=== PATIENT | female | born 1955 | race Caucasian/White ===

== ENCOUNTER → 2017-05-05 | Outpatient (CLI) | payer MEDICARE, MEDICAID ==
[~2017-05-05] MED LIST: ACCUPRIL10 MG PO; ALBUTEROL0.09 MG/A2 INH; AMOXICILLIN500 M3 PO; AMOXICILLIN500 MG PO; CELEBREX200 MG PO; CITRACAL + BON1 EACH PO; CRESTOR20 MG PO; CRESTOR40 M1 PO; FLONASE ALLERG9.9 ML NS; LOMOTIL 0.025 M1 TAB PO; MACROBID100 M1 PO; NEURONTIN400 MG PO; OMEPRAZOLE MAGN20 MG PO; TYLENOL500 MG PO; ZANTAC150 MG PO; ZOFRAN ODT8 MG PO; [UNRECOGNIZED DRUG - OTHER] PO
== END | disposition home or self-care (01) ==
LOC: D 00:46
DX: E11.42 Type 2 diabetes mellitus with diabetic polyneuropathy (principal); M79.1 Myalgia; R25.2 Cramp and spasm; R29.898 Other symptoms and signs involving the musculoskeletal system

== ENCOUNTER 2017-05-20 16:18 | Inpatient (IN) | payer MEDICARE, MEDICAID ==
[~2017-05-20] VITALS: Ht 157.4 cm; Wt 59.0 kg
--- NOTE | ~2017-05-20 | CON ---
[place], [place] REPORT OF CONSULTATION NAME: GELACIO METZ UNIT #: [id number] ROOM: 402 DOCTOR: SARAH VARGASKESHAV BIRTHDATE: [birth year] DOS: 05/21/2017 HISTORY OF PRESENT ILLNESS: Patient has presented with atypical chest pain, dyspepsia, eructation, nausea, has been admitted for definitive evaluation. White blood cell 7, H and H of 12 and 38. INR was 1.1. Comprehensive metabolic panel, electrolyte balanced. Liver function tests normal. No acute pathology identified. PAST MEDICAL HISTORY: Diverticulosis, diabetes mellitus, jaw dislocation, Raynaud disease, interstitial cystitis, hiatal hernia. PAST SURGICAL HISTORY: Colonoscopy, EGD, D and C, cystoscopy. SOCIAL HISTORY: Nonsmoker, nonalcohol consumer. FAMILY HISTORY: Noncontributory. MEDICATIONS: List has been reviewed. ALLERGIES: To numerous medications as listed in chart, history and physical. REVIEW OF SYSTEMS: HEENT: Denies double vision, blurred vision. RESPIRATORY: Denies acute shortness of breath. CARDIOVASCULAR: Denies acute chest pain. DIGESTIVE SYSTEM: Eructation, nausea, epigastric distress, dyspepsia. PHYSICAL EXAMINATION: VITAL SIGNS: Stable. GENERAL: Extremely anxious patient. HEENT: Head normocephalic, nontraumatic. Mouth and buccal mucosa benign. NECK: Supple. No thyromegaly. No cervical lymphadenopathy. CHEST: Symmetric anatomy, equal expansion, no wheeze, no rhonchi. HEART: Normal sinus rhythm, no gallop, no murmur. ABDOMEN: Soft. No hepato-organomegaly. Bowel sounds present. No pulsatile mass. EXTREMITIES: No cyanosis, no pedal edema. NEUROLOGIC: Alert, oriented to time, place, person. IMPRESSION: Epigastric distress, dyspepsia, reflux. Patient with a history of omeprazole intake 20 mg daily, on the other hand on Celebrex 200 mg b.i.d., on the other hand on vitamin C and multiple other medications including Crestor and zinc, combination of all could induce further gastritis in her or peptic ulcer disease. PLAN: We are going to organize an EGD today. [place], [place] REPORT OF CONSULTATION NAME: GELACIO METZ UNIT #: [id number] ROOM: 402 DOCTOR: KESHAV SMITH MD BIRTHDATE: [birth year] KESHAV SMITH MD CM:CONSTR:REPORT OF CONSULTATION 1411 05/22/17 0559 interface
--- NOTE | ~2017-05-20 | O ---
[place], [place] OPERATIVE NOTE [id number] UN[facility] #: [id number] ROOM: 402 DOCTOR: SARAH VARGAS,KESHAV BIRTHDATE: [birth year] DOS: GASTRO-ENDOSCOPIC REPORT INDICATIONS: The patient has presented with chief complaint of epigastric distress, dyspepsia. The patient has been undergoing cardiac workup. She is allergic to numerous medications. On the other hand, the patient has been on ascorbic acid, Celebrex and zinc product and on the other hand, she has been on gabapentin and omeprazole and so some of her pain has been masked. PROCEDURE: Today's procedure part of investigation is panendoscopy plus biopsy. PREMEDICATION: Versed and Diprivan. SCOPE: Olympus forward-viewing gastroscope Q10 video. REPORT: After putting the patient in the left lateral position and after application of lubricant to the scope, the scope was introduced. Thereafter, under direct visualization, I advanced through the length of the esophagus without difficulty. A small hiatal hernia about 1.5 cm was identified. Gastric pouch was entered. Gastritis seen. Duodenal bulb, second and third part within normal limits. The patient extubated, tolerated procedure well. IMPRESSION: Gastritis, particularly in the antral anatomy, status post biopsy and photographic series, small hiatal hernia. PLAN AND DISCUSSION: The patient would be benefiting from increasing her omeprazole to 20 mg b.i.d. and avoiding Celebrex if possible, particularly 200 mg b.i.d. and avoiding zinc product, avoiding vitamin C products which she is taking 3000 mg daily. so, the offensive agents are listed and I would recommend that she take Gaviscon Extra Strength with any one of these pills that she has to take at least daily to ameliorate adverse effect of above. KESHAV SMITH MD CM:OPRECORD:OPERATIVE NOTE [id number] KESHAV SMITH MD 05/21/17 1535 interface
[2017-05-20 16:25] VITALS: BP 180/86
--- NOTE | 2017-05-20 16:28 | NUR ---
PATIENT HAS BEEN DEFERRED TO EXAM ROOM AT THIS TIME. DR SNYDER NOTIFED.
--- NOTE | 2017-05-20 16:28 | NUR ---
PATIENT STATES IN TRIAGE THAT SHE TOLD REGISTRATION THAT SHE WAS HERE FOR URINARY SYMPTOMS. STATES TO NURSE LATER THAT SHE HAS BEEN HAVING VAGUE CHEST PAIN AND OTHER SYMPTOMS. SEE TRIAGE ASSESSMENT FOR THIS. EKG WAS CALLED IMMEADIATELY.
[2017-05-20 16:50] LABS: BASO % 0.4 % (0.0-1.0); EOS # 0.2 10*3/uL (0.0-0.4); EOS % 2.3 % (1.0-4.0); HEMATOCRIT 38.1 % (37.0-47.0); HEMOGLOBIN 12.5 g/dl (12.0-16.0); LYMPH # 1.6 10*3/uL (1.3-4.4); LYMPH % 22.5 % (27.0-41.0); MEAN CELL VOLUME 88.2 fl (81.0-99.0); MEAN CORPUSCULAR HGB 28.9 pg (27.0-31.0); MEAN CORPUSCULAR HGB CONC 32.8 g/dl (33.0-37.0); MEAN PLATELET VOLUME 10.8 fl (9.6-12.3); MONO # 0.6 10*3/uL (0.1-1.0); MONO % 7.9 % (3.0-9.0); NEUT # 4.7 10*3/uL (2.3-7.9); NEUT % 66.8 % (47.0-73.0); PLATELET COUNT AUTOMATED 279 10*3/uL (130-400); RED BLOOD COUNT 4.32 10*6/uL (4.10-5.10); RED CELL DISTRI WIDTH 12.3 % (0-14.5); WHITE BLOOD COUNT 7.1 10*3/uL (4.8-10.8)
[2017-05-20 17:00] LABS: ACT PARTIAL THROMBO TIME 24.8 SECONDS (20.8-31.5)
[2017-05-20 17:08] LABS: ALBUMIN 3.9 gm/dl (3.1-4.5); ALKALINE PHOSPHATASE 73 U/L (45-117); BUN 16 mg/dl (7-24); CHLORIDE 97 mmol/L (98-107); CREATININE 0.72 mg/dL (0.55-1.02); POTASSIUM 3.7 mmol/L (3.5-5.1); SGOT/AST 30 IU/L (3-35); SGPT/ALT 30 U/L (12-78); SODIUM 135 mmol/L (136-145); TOTAL PROTEIN 7.9 gm/dL (6.4-8.2)
[2017-05-20 17:09] LABS: TROPONIN I < 0.015 ng/ml (<0.045)
[2017-05-20 17:22] LABS: BILIRUBIN NEGATIVE (NEGATIVE); BLOOD NEGATIVE (NEGATIVE); CLARITY CLEAR (CLEAR); COLOR YELLOW (YELLOW); GLUCOSE NEGATIVE (NEGATIVE); KETONE NEGATIVE (NEGATIVE); LEUKO ESTERASE 2+ (NEGATIVE); NITRITE NEGATIVE (NEGATIVE); SPECIFIC GRAVITY <= 1.005 (1.005-1.030); UROBILINOGEN 0.2 E.U./dl (0.2-1.0)
[2017-05-20 17:24] VITALS: BP 179/88
[2017-05-20 17:27] LABS: BACTERIA 1+; RBC 0-2 rbc/hpf (0-2)
[2017-05-20 17:56] VITALS: BP 160/62
--- NOTE | 2017-05-20 19:11 | NUR ---
PATIENT REQUESTS FRUIT TO BALANCE HER DINNER MEAL. DIETARY CALLED AND INFORMED.
--- NOTE | 2017-05-20 19:56 | NUR ---
A 62, admitted to 4E, under the services of JOAQUÍN Cali DO with a diagnosis of CHEST PAIN. Chief complaint is WEAKNESS, CHEST PAIN. Patient arrived via ambulatory from ER. Monitor applied. Initial assessment completed. Vital signs taken and recorded. JOAQUÍN CALI DO notified of admission to the unit. Orders received. See assessment for past medical history, medications and allergies. Patient and/or family oriented to unit. [facility] visitation policy reviewed. Clothing/patient valuable form completed. KIA ALEMAN
[2017-05-20 19:57] VITALS: BP 134/76
[2017-05-20 20:00] VITALS: BP 160/62
[2017-05-20] MEDS ORDERED: PROVENTIL HFA6.7 GM INH (20:07)
[2017-05-20] MEDS ORDERED: ACCUPRIL20 MG PO (20:08)
[2017-05-20] MEDS ORDERED: AMILORIDE HCL-1 EACH PO (20:10)
[2017-05-20] MEDS ORDERED: TYLENOL EXTRA500 MG PO (20:14)
[2017-05-20] MEDS ORDERED: VITAMIN C WIT1000 M1 PO (20:16)
[2017-05-20] MEDS ORDERED: ZINC50 M4 PO (20:16)
--- NOTE | 2017-05-20 22:26 | NUR ---
NOTIFIED DR. SMITH OF CONSULT, PATIENT FOR EGD TOMORROW 05/21/17
--- NOTE | 2017-05-20 22:30 | NUR ---
DR. ELLIOTT NOTIFIED OF CONSULT THROUGH ANSWERING SERVICE.
[2017-05-21] VITALS (7 sets, daily range): BP systolic 121–164; BP diastolic 63–82
[2017-05-21 05:48] LABS: BUN 17 mg/dl (7-24); CHLORIDE 96 mmol/L (98-107); CHOLESTEROL 207 mg/dL (<200); CREATININE 0.78 mg/dL (0.55-1.02); HDL CHOLESTEROL 53 mg/dl (40-60); LDL CHOLESTEROL 108 mg/dL (9-159); PHOSPHOROUS 3.9 mg/dL (2.5-4.9); POTASSIUM 4.1 mmol/L (3.5-5.1); SODIUM 135 mmol/L (136-145); TRIGLYCERIDES 228 mg/dl (<150); VLDL CHOLESTEROL 46 mg/dL (6-40)
[2017-05-21 06:19] LABS: BASO % 0.6 % (0.0-1.0); EOS # 0.1 10*3/uL (0.0-0.4); EOS % 2.2 % (1.0-4.0); HEMATOCRIT 39.6 % (37.0-47.0); HEMOGLOBIN 12.7 g/dl (12.0-16.0); LYMPH % 31.2 % (27.0-41.0); MEAN CELL VOLUME 89.4 fl (81.0-99.0); MEAN CORPUSCULAR HGB 28.7 pg (27.0-31.0); MEAN CORPUSCULAR HGB CONC 32.1 g/dl (33.0-37.0); MEAN PLATELET VOLUME 10.8 fl (9.6-12.3); MONO # 0.7 10*3/uL (0.1-1.0); MONO % 10.4 % (3.0-9.0); NEUT # 3.5 10*3/uL (2.3-7.9); NEUT % 55.3 % (47.0-73.0); PLATELET COUNT AUTOMATED 284 10*3/uL (130-400); RED BLOOD COUNT 4.43 10*6/uL (4.10-5.10); RED CELL DISTRI WIDTH 12.3 % (0-14.5); WHITE BLOOD COUNT 6.4 10*3/uL (4.8-10.8)
[2017-05-21 06:33] LABS: VITAMIN D, 25-HYDROXY 43.7 ng/mL (30-100)
--- NOTE | 2017-05-21 07:56 | NUR ---
[employer] Boards [employer] in to talk to patient. Patient states lives at HOME ALONE with . There are 2 steps in the home. Physician: DR DICK Pharmacy: [facility] health services: NONE Patient's level of ADLs: INDEPENDENT Patient has working utilities: YES DME: [facility] Follow-up physician's appointment after d/c: WILL BE MADE PRIOR TO DC Does patient want to access PORTAL?: Discharge plan HOME. LAUREANO TORRES
--- NOTE | 2017-05-21 08:18 | NUR ---
PT AGITATED THAT SHE IS NOT ALLOWED TO EAT TODAY DUE TO HER EGD AND STRESS TEST. I EXPLAINED THAT IMPORTANCE OF WHY SHE NEEDS TO BE NPO FOR THESE TESTS BUT PT STATES THAT SHE IS A DIET CONTROLLED DIABETIC AND SHE DOESNT FEEL GOOD IF SHE DOESNT EAT. I CHECKED PT'S BEDSIDE GLUCOSE AND IT IS 112 AT THIS TIME.
--- NOTE | 2017-05-21 10:15 | NUR ---
PT TAKEN TO CARDIAC REHAB FOR STRESS TEST.
--- NOTE | 2017-05-21 11:26 | NUR ---
INFORMED CONSENT SIGNED FOR LEXISCAN STRESS TEST WITH DR. ELLIOTT. RESTING EKG NSR, HR 78, BP 120/79. PULSE OX 95% AND LUNGS CLEAR. COMPLETED ONE MINUTE OF LEXISCAN PROTOCOL RECEIVING LEXISCAN 0.4MG OVER 10 SEC[address]DS[address] NO ARRHYTHMIAS OR ST CHANGES NOTED. PT C/O SOB AND HEADACHE. LAST RECOVERY HR 103, BP 120/70. WAITNG NUCLEAR SCANNING IN STABLE CONDITION.
--- NOTE | 2017-05-21 12:57 | NUR ---
PT TAKEN TO SURGERY DEPT FOR EGD.
[2017-05-21] MEDS ORDERED: B12,B-12,B 12500 MC1 PO (15:33)
[2017-05-21] MEDS ORDERED: PHENAZOPYRIDIN100 M1 PO (16:24)
--- NOTE | 2017-05-21 17:08 | NUR ---
DISCHARGE PAPERWORK REVIEWED WITH PATIENT. ALL QUESTIONS ANSWERED AT THIS TIME. PATIENT VERBALIZED UNDERSTANDING. OFF THE FLOOR WITH ALL BELONGINGS IN HAND VIA WHEELCHAIR.
== END 2017-05-21 17:08 | disposition home or self-care (01) | DRG 872 ==
LOC: ED 16:18 → 4E 18:27 → EDHOLD 18:27 → 4E 18:41
PROVIDERS: Internal Medicine; Student in an Organized Health Care Education/Training Program; ADMIT Internal Medicine
PROC: 4A02XM4 Measurement of Cardiac Total Activity, External Approach (ICD-10-PCS; principal; 2017-05-21)
PROC: 0DB68ZX Excision of Stomach, Via Natural or Artificial Opening Endoscopic, Diagnostic (ICD-10-PCS; principal; 2017-05-21)
PROC: 3E073KZ Introduction of Other Diagnostic Substance into Coronary Artery, Percutaneous Approach (ICD-10-PCS; principal; 2017-05-21)
DX: A41.9 Sepsis, unspecified organism (principal); E11.42 Type 2 diabetes mellitus with diabetic polyneuropathy; E87.8 Other disorders of electrolyte and fluid balance, not elsewhere classified; R13.10 Dysphagia, unspecified; E11.65 Type 2 diabetes mellitus with hyperglycemia; E83.41 Hypermagnesemia; E87.1 Hypo-osmolality and hyponatremia; I16.1 Hypertensive emergency; N39.0 Urinary tract infection, site not specified; F41.9 Anxiety disorder, unspecified; R07.89 Other chest pain; I10 Essential (primary) hypertension; M19.90 Unspecified osteoarthritis, unspecified site; M79.7 Fibromyalgia; K44.9 Diaphragmatic hernia without obstruction or gangrene; K57.90 Diverticulosis of intestine, part unspecified, without perforation or abscess without bleeding; I73.00 Raynaud's syndrome without gangrene; E78.2 Mixed hyperlipidemia; K29.70 Gastritis, unspecified, without bleeding; Z88.1 Allergy status to other antibiotic agents; Z88.5 Allergy status to narcotic agent; Z88.0 Allergy status to penicillin; Z88.2 Allergy status to sulfonamides; Z88.8 Allergy status to other drugs, medicaments and biological substances; Z83.3 Family history of diabetes mellitus; Z82.49 Family history of ischemic heart disease and other diseases of the circulatory system; Z82.3 Family history of stroke; Z82.61 Family history of arthritis; Z79.899 Other long term (current) drug therapy

== ENCOUNTER → 2018-01-12 | Day surgery (SDC) | payer MEDICARE, MEDICAID ==
[~2018-01-12] MED LIST changes: +ACCUPRIL20 MG PO; +AMILORIDE HCL-1 EACH PO; +ANASPAZ0.125 M1 PO; +B12,B-12,B 12500 MC1 PO; -CELEBREX200 MG PO; +CELECOXIB200 M1 PO; +PHENAZOPYRIDIN100 M1 PO; +PROVENTIL HFA6.7 GM INH; +TYLENOL EXTRA500 MG PO; +VITAMIN C WIT1000 M1 PO; +ZINC50 M4 PO; +[UNRECOGNIZED DRUG - OTHER] T
--- NOTE | ~2018-01-12 | O ---
[place], [place] OPERATIVE NOTE NAME: GELACIO METZ UNIT #: [id number] ROOM: DOCTOR: KESHAV SMITH MD BIRTHDATE: [birth year] DOS: 01/12/2018 HISTORY OF PRESENT ILLNESS: A 62-year-old patient who presented with a complaint of rectal pain, periodic blood in the stool, change in bowel habit, constipation and diarrhea. PAST MEDICAL HISTORY: Hypercholesterolemia, hypertension, rectal fissure history status post treatment. PAST SURGICAL HISTORY: Uterine polyp laparoscopy removal. SOCIAL HISTORY: Nonsmoker and nonalcohol consumer. PROCEDURE: Today's procedure part of investigation is colonoscopy plus polypectomy. PREMEDICATION: Propofol. SCOPE: Olympus forward-viewing colonoscope 10L video. REPORT: After putting the patient in left lateral position and application of lubricant to the scope, the scope was introduced. Thereafter, under direct visualization, advanced through the length of colon without difficulty. Diverticulosis of moderate degree appreciated. Base of the cecum explored, appendiceal orifice identified, and ileocecal valve was defined. Scope was withdrawn back to the rectal pouch. A sessile polypoid lesion with piecemeal polypectomy removed. Rectum carefully examined. There are no hemorrhoids and the posterior rectal fissure that she has had 98% has healed. Therefore, we are going to continue with supportive therapy. As far as diarrhea and change in bowel habit is concerned, most likely diverticulosis and an element of irritable bowel syndrome. Hyoscyamine 0.125 mg daily is going to be used to see if improvement in her bowel habit occurs. Meanwhile, she has to stay on High fiber diet. FINAL DIAGNOSES: Diverticulosis and sessile polypoid lesion in the rectum, status post piecemeal polypectomy and healed rectal fissure. Thank you very much indeed for your kind referral. [place], [place] OPERATIVE NOTE NAME: GELACIO METZ UNIT #: [id number] ROOM: DOCTOR: KESHAV SMITH MD BIRTHDATE: [birth year] KESHAV SMITH MD CM:OPRECORD:OPERATIVE NOTE 1009 [id number] KESHAV SMITH MD 01/12/18 1017 interface
[2018-01-12 08:30] VITALS: BP 180/80
[2018-01-12 10:04] VITALS: BP 143/84
[2018-01-12 10:15] VITALS: BP 140/73
[2018-01-12 10:34] VITALS: BP 142/73
== END | disposition home or self-care (01) ==
LOC: SDC 01-07 08:00
DX: K62.1 Rectal polyp (principal); K57.30 Diverticulosis of large intestine without perforation or abscess without bleeding; K60.2 Anal fissure, unspecified; E78.00 Pure hypercholesterolemia, unspecified; I10 Essential (primary) hypertension; Z98.890 Other specified postprocedural states; Z88.5 Allergy status to narcotic agent; Z88.2 Allergy status to sulfonamides; Z88.1 Allergy status to other antibiotic agents; Z88.8 Allergy status to other drugs, medicaments and biological substances; Z79.899 Other long term (current) drug therapy; E11.9 Type 2 diabetes mellitus without complications; J45.909 Unspecified asthma, uncomplicated; K21.9 Gastro-esophageal reflux disease without esophagitis

== ENCOUNTER → 2018-05-17 | Outpatient (CLI) | payer MEDICARE, MEDICAID | END | disposition home or self-care (01) | LOC: CARD 00:45 | DX: R06.00 Dyspnea, unspecified (principal) ==

== ENCOUNTER 2019-06-21 16:26 | Emergency (ER) | payer OTHER, MEDICAID ==
[~2019-06-21] VITALS: Ht 152.4 cm; Wt 59.4 kg
[2019-06-21 16:30] VITALS: BP 182/78
[2019-06-21 17:19] LABS: BILIRUBIN NEGATIVE (NEGATIVE); BLOOD NEGATIVE (NEGATIVE); CLARITY CLEAR (CLEAR); COLOR YELLOW (YELLOW); GLUCOSE NEGATIVE (NEGATIVE); KETONE NEGATIVE (NEGATIVE); LEUKO ESTERASE 1+ (NEGATIVE); NITRITE NEGATIVE (NEGATIVE); SPECIFIC GRAVITY <= 1.005 (1.005-1.030); UROBILINOGEN 0.2 E.U./dl (0.2-1.0)
[2019-06-21 17:28] LABS: BACTERIA TRACE; EPITHELIAL CELLS 0-2
== END 2019-06-21 17:40 | disposition home or self-care (01) ==
LOC: ED 16:26
PROVIDERS: Nurse Practitioner
DX: L25.9 Unspecified contact dermatitis, unspecified cause (principal); R39.9 Unspecified symptoms and signs involving the genitourinary system; Z88.8 Allergy status to other drugs, medicaments and biological substances; Z79.899 Other long term (current) drug therapy; Z79.2 Long term (current) use of antibiotics; Z88.5 Allergy status to narcotic agent

== ENCOUNTER → 2019-06-23 | Outpatient (CLI) | payer OTHER, MEDICAID | END | disposition home or self-care (01) | LOC: ORTHO 01:18 | DX: M25.562 Pain in left knee (principal); M25.552 Pain in left hip ==

== ENCOUNTER → 2019-12-12 | Outpatient (CLI) | payer OTHER, MEDICAID ==
[2019-12-12 09:50] LABS: BASO % 0.5 % (0.0-1.0); EOS # 0.1 10*3/uL (0.0-0.4); EOS % 1.1 % (1.0-4.0); HEMATOCRIT 41.1 % (37.0-47.0); LYMPH # 1.3 10*3/uL (1.3-4.4); MEAN CELL VOLUME 89.2 fl (81.0-99.0); MEAN CORPUSCULAR HGB 27.3 pg (27.0-31.0); MEAN CORPUSCULAR HGB CONC 30.7 g/dl (33.0-37.0); MEAN PLATELET VOLUME 10.7 fl (9.6-12.3); MONO # 0.5 10*3/uL (0.1-1.0); MONO % 8.7 % (3.0-9.0); NEUT # 4.2 10*3/uL (2.3-7.9); NEUT % 68.4 % (47.0-73.0); PLATELET COUNT AUTOMATED 260 10*3/uL (130-400); RED BLOOD COUNT 4.61 10*6/uL (4.10-5.10); WHITE BLOOD COUNT 6.1 10*3/uL (4.8-10.8)
[2019-12-12 10:13] LABS: ALBUMIN 4.2 gm/dl (3.1-4.5); BILIRUBIN, DIRECT 0.2 mg/dL (0.0-0.2); BUN 22 mg/dl (7-24); CHLORIDE 103 mmol/L (98-107); CHOLESTEROL 184 mg/dL (<200); CREATININE 0.73 mg/dL (0.55-1.02); POTASSIUM 3.9 mmol/L (3.5-5.1); SGOT/AST 12 IU/L (3-35); SGPT/ALT 24 U/L (12-78); SODIUM 138 mmol/L (136-145); TRIGLYCERIDES 159 mg/dl (<150); VLDL CHOLESTEROL 32 mg/dL (6-40)
[2019-12-12 10:18] LABS: VITAMIN D, 25-HYDROXY 75.5 ng/mL (30-100)
[2019-12-12 10:19] LABS: ALKALINE PHOSPHATASE 58 U/L (45-117); HDL CHOLESTEROL 73 mg/dl (40-60); LDL CHOLESTEROL 79 mg/dL (9-159); TOTAL PROTEIN 8.2 gm/dL (6.4-8.2)
== END | disposition home or self-care (01) ==
LOC: LAB 00:19
PROVIDERS: Family Medicine
DX: K21.9 Gastro-esophageal reflux disease without esophagitis (principal); E11.9 Type 2 diabetes mellitus without complications; J30.89 Other allergic rhinitis; E78.5 Hyperlipidemia, unspecified; I10 Essential (primary) hypertension; E53.9 Vitamin B deficiency, unspecified; E55.9 Vitamin D deficiency, unspecified; Z79.899 Other long term (current) drug therapy

== ENCOUNTER → 2020-04-05 | Outpatient (CLI) | payer OTHER, MEDICAID ==
[2020-04-05 09:39] LABS: BILIRUBIN NEGATIVE; BLOOD NEGATIVE (NEGATIVE); CLARITY CLEAR (CLEAR); COLOR YELLOW (YELLOW); GLUCOSE NEGATIVE; KETONE NEGATIVE; LEUKO ESTERASE NEGATIVE (NEGATIVE); NITRITE NEGATIVE (NEGATIVE); SPECIFIC GRAVITY 1.015 (1.001-1.030); UROBILINOGEN 0.2 E.U./dl (0.0-1.0)
[2020-04-05 09:41] LABS: ALBUMIN 4.2 gm/dl (3.1-4.5); BILIRUBIN, DIRECT 0.2 mg/dL (0.0-0.2); BUN 18 mg/dl (7-24); CHLORIDE 105 mmol/L (98-107); CHOLESTEROL 176 mg/dL (<200); CREATININE 0.71 mg/dL (0.55-1.02); POTASSIUM 4.3 mmol/L (3.5-5.1); SGOT/AST 12 IU/L (3-35); SGPT/ALT 24 U/L (12-78); SODIUM 136 mmol/L (136-145); TRIGLYCERIDES 210 mg/dl (<150); VLDL CHOLESTEROL 42 mg/dL (6-40)
[2020-04-05 09:48] LABS: ALKALINE PHOSPHATASE 73 U/L (45-117); FREE T4 1.07 ng/dl (0.76-1.46); HDL CHOLESTEROL 54 mg/dl (40-60); LDL CHOLESTEROL 80 mg/dL (9-159); TOTAL PROTEIN 8.3 gm/dL (6.4-8.2)
[2020-04-05 10:00] LABS: VITAMIN D, 25-HYDROXY 62.2 ng/mL (30-100)
[2020-04-05 10:40] LABS: BACTERIA TRACE; EPITHELIAL CELLS 0-2
== END | disposition home or self-care (01) ==
LOC: LAB 08:11
PROVIDERS: ATTEND Internal Medicine
DX: E11.65 Type 2 diabetes mellitus with hyperglycemia (principal); E78.5 Hyperlipidemia, unspecified; E11.40 Type 2 diabetes mellitus with diabetic neuropathy, unspecified; E55.9 Vitamin D deficiency, unspecified; K59.00 Constipation, unspecified

== ENCOUNTER → 2020-09-17 | Outpatient (CLI) | payer OTHER, MEDICAID ==
[2020-09-17 09:57] LABS: BILIRUBIN, DIRECT 0.2 mg/dL (0.0-0.2); BUN 18 mg/dl (7-24); CHLORIDE 106 mmol/L (98-107); CHOLESTEROL 153 mg/dL (<200); CREATININE 0.69 mg/dL (0.55-1.02); POTASSIUM 3.8 mmol/L (3.5-5.1); SGOT/AST 11 IU/L (3-35); SGPT/ALT 20 U/L (12-78); SODIUM 142 mmol/L (136-145); TRIGLYCERIDES 168 mg/dl (<150); VLDL CHOLESTEROL 34 mg/dL (6-40)
[2020-09-17 09:58] LABS: ALKALINE PHOSPHATASE 79 U/L (45-117); HDL CHOLESTEROL 59 mg/dl (40-60); LDL CHOLESTEROL 60 mg/dL (9-159)
[2020-09-17 10:03] LABS: BILIRUBIN Negative (Negative); BLOOD Negative (Negative); CLARITY Clear (Clear); COLOR Yellow (Yellow); GLUCOSE Negative (Negative); KETONE Negative (Negative); LEUKO ESTERASE 2+ (Negative); NITRITE Negative (Negative); PH 5.5 (4.5-8.0); SPECIFIC GRAVITY 1.015 (1.001-1.030); UROBILINOGEN 0.2 E.U./dl (0.0-1.0)
[2020-09-17 10:13] LABS: MUCOUS TRACE; WBC 16-20 wbc/hpf (0-5)
[2020-09-17 11:58] LABS: VITAMIN D, 25-HYDROXY 66.4 ng/mL (30-100)
== END | disposition home or self-care (01) ==
LOC: LAB 08:14
PROVIDERS: ATTEND Internal Medicine
DX: E11.65 Type 2 diabetes mellitus with hyperglycemia (principal); E78.5 Hyperlipidemia, unspecified; E55.9 Vitamin D deficiency, unspecified; E53.8 Deficiency of other specified B group vitamins

== ENCOUNTER → 2020-09-23 | Outpatient (CLI) | payer OTHER, MEDICAID ==
[~2020-09-23] MED LIST changes: +AMOXICILLIN500 M2 PO; +FLAGYL500 MG PO
[2020-09-23 17:20] LABS: BILIRUBIN Negative (Negative); BLOOD Negative (Negative); CLARITY Clear (Clear); COLOR Yellow (Yellow); GLUCOSE Negative (Negative); KETONE Negative (Negative); LEUKO ESTERASE 1+ (Negative); NITRITE Negative (Negative); UROBILINOGEN 0.2 E.U./dl (0.0-1.0)
[2020-09-23 17:30] LABS: BACTERIA TRACE
== END | disposition home or self-care (01) ==
LOC: LAB 16:52
PROVIDERS: ATTEND Internal Medicine
DX: N30.00 Acute cystitis without hematuria (principal)

== ENCOUNTER 2020-11-13 12:03 | Emergency (ER) | payer OTHER, MEDICAID ==
[~2020-11-13] VITALS: Ht 152.4 cm; Wt 59.0 kg
[~2020-11-13 12:03] MED LIST changes: -AMOXICILLIN500 M2 PO; -FLAGYL500 MG PO
[2020-11-13 12:12] VITALS: BP 181/82
[2020-11-13 12:44] LABS: BASO % 0.3 % (0.0-1.0); EOS # 0.1 10*3/uL (0.0-0.4); EOS % 0.7 % (1.0-4.0); HEMATOCRIT 38.8 % (37.0-47.0); LYMPH # 1.4 10*3/uL (1.3-4.4); LYMPH % 12.9 % (27.0-41.0); MEAN CORPUSCULAR HGB 27.8 pg (27.0-31.0); MEAN CORPUSCULAR HGB CONC 31.2 g/dl (33.0-37.0); MEAN PLATELET VOLUME 10.3 fl (9.6-12.3); MONO # 0.7 10*3/uL (0.1-1.0); MONO % 6.4 % (3.0-9.0); NEUT # 8.3 10*3/uL (2.3-7.9); NEUT % 79.4 % (47.0-73.0); PLATELET COUNT AUTOMATED 253 10*3/uL (130-400); RED BLOOD COUNT 4.36 10*6/uL (4.10-5.10); RED CELL DISTRI WIDTH 12.7 % (0-14.5); WHITE BLOOD COUNT 10.5 10*3/uL (4.8-10.8)
[2020-11-13 12:59] LABS: ALKALINE PHOSPHATASE 72 U/L (45-117); BUN 18 mg/dl (7-24); CHLORIDE 104 mmol/L (98-107); CREATININE 0.85 mg/dL (0.55-1.02); LIPASE 66 U/L (73-393); POTASSIUM 4.4 mmol/L (3.5-5.1); SGOT/AST 8 IU/L (3-35); SGPT/ALT 22 U/L (12-78); SODIUM 138 mmol/L (136-145); TOTAL PROTEIN 7.8 gm/dL (6.4-8.2)
[2020-11-13 14:56] LABS: BILIRUBIN Negative (Negative); BLOOD Negative (Negative); CLARITY Clear (Clear); COLOR Yellow (Yellow); GLUCOSE Negative (Negative); KETONE Negative (Negative); LEUKO ESTERASE Trace (Negative); NITRITE Negative (Negative); SPECIFIC GRAVITY 1.015 (1.001-1.030); UROBILINOGEN 0.2 E.U./dl (0.0-1.0)
[2020-11-13 15:08] LABS: EPITHELIAL CELLS 0-2; HYALINE CAST 0-2; RBC 0-2 rbc/hpf (0-2); WBC 0-2 wbc/hpf (0-5)
[2020-11-13] MEDS ORDERED: AMOXICILLIN500 M2 PO (16:08)
[2020-11-13] MEDS ORDERED: FLAGYL500 MG PO (16:08)
== END 2020-11-13 16:28 | disposition home or self-care (01) ==
LOC: ED 12:03
PROVIDERS: Physician Assistant
DX: K57.92 Diverticulitis of intestine, part unspecified, without perforation or abscess without bleeding (principal); Z88.8 Allergy status to other drugs, medicaments and biological substances; Z88.5 Allergy status to narcotic agent; Z79.899 Other long term (current) drug therapy; Z88.6 Allergy status to analgesic agent; Z98.890 Other specified postprocedural states

== ENCOUNTER → 2020-12-31 | Outpatient (CLI) | payer OTHER, MEDICAID ==
[~2020-12-31] MED LIST changes: +AMOXICILLIN500 M2 PO; +FLAGYL500 MG PO
[2020-12-31 08:23] LABS: ALKALINE PHOSPHATASE 70 U/L (45-117); BILIRUBIN, DIRECT 0.2 mg/dL (0.0-0.2); BUN 17 mg/dl (7-24); CHLORIDE 103 mmol/L (98-107); CHOLESTEROL 184 mg/dL (<200); CREATININE 0.67 mg/dL (0.55-1.02); LDL CHOLESTEROL 76 mg/dL (9-159); POTASSIUM 3.7 mmol/L (3.5-5.1); SGOT/AST 8 IU/L (3-35); SGPT/ALT 20 U/L (12-78); SODIUM 138 mmol/L (136-145); TOTAL PROTEIN 8.1 gm/dL (6.4-8.2); TRIGLYCERIDES 267 mg/dl (<150)
== END | disposition home or self-care (01) ==
LOC: LAB 00:21
PROVIDERS: ATTEND Internal Medicine
DX: N30.00 Acute cystitis without hematuria (principal); E11.65 Type 2 diabetes mellitus with hyperglycemia; E11.40 Type 2 diabetes mellitus with diabetic neuropathy, unspecified; E55.9 Vitamin D deficiency, unspecified; E78.5 Hyperlipidemia, unspecified

== ENCOUNTER → 2021-03-18 | Outpatient (CLI) | payer OTHER, MEDICAID | END | disposition home or self-care (01) | LOC: US 00:32 | PROVIDERS: ATTEND Physician Assistant Medical | DX: K76.89 Other specified diseases of liver (principal); R10.11 Right upper quadrant pain ==

== ENCOUNTER → 2021-04-22 | Outpatient (CLI) | payer OTHER, MEDICAID ==
[2021-04-22 12:48] LABS: BASO % 0.3 % (0.0-1.0); EOS # 0.1 10*3/uL (0.0-0.4); EOS % 0.9 % (1.0-4.0); LYMPH # 1.1 10*3/uL (1.3-4.4); LYMPH % 14.4 % (27.0-41.0); MEAN CELL VOLUME 88.7 fl (81.0-99.0); MEAN CORPUSCULAR HGB 27.7 pg (27.0-31.0); MEAN CORPUSCULAR HGB CONC 31.3 g/dl (33.0-37.0); MEAN PLATELET VOLUME 10.1 fl (9.6-12.3); MONO # 0.6 10*3/uL (0.1-1.0); MONO % 7.4 % (3.0-9.0); NEUT # 5.9 10*3/uL (2.3-7.9); NEUT % 76.9 % (47.0-73.0); PLATELET COUNT AUTOMATED 237 10*3/uL (130-400); RED BLOOD COUNT 4.51 10*6/uL (4.10-5.10); RED CELL DISTRI WIDTH 12.8 % (0-14.5); WHITE BLOOD COUNT 7.7 10*3/uL (4.8-10.8)
[2021-04-22 13:03] LABS: ALBUMIN 3.8 gm/dl (3.1-4.5); ALKALINE PHOSPHATASE 59 U/L (45-117); BUN 18 mg/dl (7-24); CHLORIDE 102 mmol/L (98-107); CREATININE 0.76 mg/dL (0.55-1.02); SGOT/AST 22 IU/L (3-35); SGPT/ALT 36 U/L (12-78); SODIUM 139 mmol/L (136-145); TOTAL PROTEIN 7.7 gm/dL (6.4-8.2)
== END | disposition home or self-care (01) ==
LOC: LAB 12:28
PROVIDERS: ATTEND Physician Assistant Medical
DX: I87.8 Other specified disorders of veins (principal); E55.9 Vitamin D deficiency, unspecified; R10.84 Generalized abdominal pain; R19.7 Diarrhea, unspecified; K92.1 Melena

== ENCOUNTER → 2021-05-01 | Outpatient (CLI) | payer OTHER, MEDICAID ==
[2021-05-01 08:03] LABS: BILIRUBIN Negative (Negative); BLOOD Negative (Negative); CLARITY Clear (Clear); COLOR Yellow (Yellow); GLUCOSE Negative (Negative); KETONE Negative (Negative); LEUKO ESTERASE 1+ (Negative); NITRITE Negative (Negative); PH 5.5 (4.5-8.0); SPECIFIC GRAVITY 1.015 (1.001-1.030); UROBILINOGEN 0.2 E.U./dl (0.0-1.0)
[2021-05-01 08:06] LABS: ALBUMIN 3.9 gm/dl (3.1-4.5); ALKALINE PHOSPHATASE 56 U/L (45-117); BUN 19 mg/dl (7-24); CHLORIDE 104 mmol/L (98-107); CHOLESTEROL 183 mg/dL (<200); CREATININE 0.78 mg/dL (0.55-1.02); LDL CHOLESTEROL 99 mg/dL (9-159); POTASSIUM 4.5 mmol/L (3.5-5.1); SGOT/AST 14 IU/L (3-35); SGPT/ALT 27 U/L (12-78); SODIUM 137 mmol/L (136-145); TOTAL PROTEIN 7.9 gm/dL (6.4-8.2); TRIGLYCERIDES 125 mg/dl (<150)
[2021-05-01 09:25] LABS: BACTERIA TRACE; EPITHELIAL CELLS 0-2
== END | disposition home or self-care (01) ==
LOC: LAB 07:33
PROVIDERS: ATTEND Internal Medicine
DX: E11.65 Type 2 diabetes mellitus with hyperglycemia (principal); E78.5 Hyperlipidemia, unspecified; E53.8 Deficiency of other specified B group vitamins; E55.9 Vitamin D deficiency, unspecified

== ENCOUNTER → 2021-05-05 | Outpatient (CLI) | payer OTHER, MEDICAID | END | disposition home or self-care (01) | LOC: D 12:11 | PROVIDERS: ATTEND Physician Assistant Medical | DX: E11.9 Type 2 diabetes mellitus without complications (principal) ==

== ENCOUNTER 2021-06-27 11:10 | Emergency (ER) | payer OTHER, MEDICAID ==
[~2021-06-27] VITALS: Ht 152.4 cm; Wt 62.6 kg
[2021-06-27 11:31] LABS: BASO % 0.3 % (0.0-1.0); EOS # 0.1 10*3/uL (0.0-0.4); HEMATOCRIT 39.1 % (37.0-47.0); LYMPH # 0.9 10*3/uL (1.3-4.4); LYMPH % 14.6 % (27.0-41.0); MEAN CELL VOLUME 89.7 fl (81.0-99.0); MEAN CORPUSCULAR HGB 27.8 pg (27.0-31.0); MEAN CORPUSCULAR HGB CONC 30.9 g/dl (33.0-37.0); MEAN PLATELET VOLUME 9.9 fl (9.6-12.3); MONO # 0.4 10*3/uL (0.1-1.0); MONO % 6.6 % (3.0-9.0); NEUT # 4.7 10*3/uL (2.3-7.9); NEUT % 77.2 % (47.0-73.0); PLATELET COUNT AUTOMATED 237 10*3/uL (130-400); RED BLOOD COUNT 4.36 10*6/uL (4.10-5.10); RED CELL DISTRI WIDTH 13.2 % (0-14.5)
[2021-06-27 11:51] VITALS: BP 122/69
[2021-06-27 11:52] LABS: ALBUMIN 3.7 gm/dl (3.1-4.5); ALKALINE PHOSPHATASE 65 U/L (45-117); BUN 14 mg/dl (7-24); CHLORIDE 102 mmol/L (98-107); CREATININE 0.69 mg/dL (0.55-1.02); LIPASE 61 U/L (73-393); POTASSIUM 4.1 mmol/L (3.5-5.1); SGOT/AST 11 IU/L (3-35); SGPT/ALT 25 U/L (12-78); SODIUM 140 mmol/L (136-145); TOTAL PROTEIN 7.9 gm/dL (6.4-8.2)
== END 2021-06-27 13:47 | disposition home or self-care (01) ==
LOC: ED 11:10
PROVIDERS: Physician Assistant
DX: K30 Functional dyspepsia (principal); R14.2 Eructation; Z88.8 Allergy status to other drugs, medicaments and biological substances; Z88.1 Allergy status to other antibiotic agents; Z88.6 Allergy status to analgesic agent; Z79.899 Other long term (current) drug therapy

== ENCOUNTER 2021-08-03 13:16 | Emergency (ER) | payer OTHER, MEDICAID ==
[~2021-08-03] VITALS: Ht 152.4 cm; Wt 59.0 kg
[2021-08-03 13:45] VITALS: BP 152/73
[2021-08-03 14:07] LABS: BASO % 0.3 % (0.0-1.0); EOS % 0.1 % (1.0-4.0); HEMATOCRIT 39.3 % (37.0-47.0); LYMPH # 1.1 10*3/uL (1.3-4.4); LYMPH % 11.3 % (27.0-41.0); MEAN CELL VOLUME 87.1 fl (81.0-99.0); MEAN CORPUSCULAR HGB 27.5 pg (27.0-31.0); MEAN CORPUSCULAR HGB CONC 31.6 g/dl (33.0-37.0); MEAN PLATELET VOLUME 10.4 fl (9.6-12.3); MONO # 0.5 10*3/uL (0.1-1.0); MONO % 5.6 % (3.0-9.0); NEUT # 7.6 10*3/uL (2.3-7.9); NEUT % 82.2 % (47.0-73.0); PLATELET COUNT AUTOMATED 261 10*3/uL (130-400); RED BLOOD COUNT 4.51 10*6/uL (4.10-5.10); RED CELL DISTRI WIDTH 12.5 % (0-14.5); WHITE BLOOD COUNT 9.3 10*3/uL (4.8-10.8)
[2021-08-03 14:26] LABS: ALBUMIN 3.9 gm/dl (3.1-4.5); ALKALINE PHOSPHATASE 70 U/L (45-117); BUN 15 mg/dl (7-24); CHLORIDE 103 mmol/L (98-107); CREATININE 0.75 mg/dL (0.55-1.02); POTASSIUM 3.7 mmol/L (3.5-5.1); SGOT/AST 14 IU/L (3-35); SGPT/ALT 27 U/L (12-78); SODIUM 138 mmol/L (136-145); TOTAL PROTEIN 7.7 gm/dL (6.4-8.2)
== END 2021-08-03 16:16 | disposition home or self-care (01) ==
LOC: ED 13:16
PROVIDERS: Student in an Organized Health Care Education/Training Program
DX: B34.9 Viral infection, unspecified (principal); Z20.822 Contact with and (suspected) exposure to COVID-19; Z88.6 Allergy status to analgesic agent; Z88.1 Allergy status to other antibiotic agents; Z88.8 Allergy status to other drugs, medicaments and biological substances; Z79.899 Other long term (current) drug therapy

== ENCOUNTER → 2021-09-03 | Outpatient (CLI) | payer OTHER, MEDICAID | END | disposition home or self-care (01) | LOC: CARD 00:06 | PROVIDERS: ATTEND Physician Assistant Medical | DX: R07.89 Other chest pain (principal) ==

== ENCOUNTER → 2021-09-23 | Outpatient (CLI) | payer OTHER, MEDICAID ==
[~2021-09-23] MED LIST changes: +ALLEGRA ALLERG180 M2 PO; +OMEGA 3 1,0001 EACH PO; +SALINE NASAL SP88 ML NAS
== END | disposition home or self-care (01) ==
LOC: RAD 01:01
PROVIDERS: ATTEND Internal Medicine
DX: M85.88 Other specified disorders of bone density and structure, other site (principal)

== ENCOUNTER → 2021-09-24 | Outpatient (CLI) | payer OTHER, MEDICAID | END | disposition home or self-care (01) | LOC: CARD 00:03 | PROVIDERS: ATTEND Physician Assistant Medical | DX: R07.89 Other chest pain (principal) ==

== ENCOUNTER → 2021-10-08 | Outpatient (CLI) | payer OTHER, MEDICAID | END | disposition home or self-care (01) | LOC: RAD 12:47 | PROVIDERS: ATTEND Internal Medicine Cardiovascular Disease | DX: R06.00 Dyspnea, unspecified (principal) ==

== ENCOUNTER → 2021-10-21 | Outpatient (CLI) | payer OTHER, MEDICAID ==
[2021-10-21 07:39] LABS: BILIRUBIN Negative (Negative); BLOOD Negative (Negative); CLARITY Clear (Clear); COLOR Yellow (Yellow); GLUCOSE Negative (Negative); KETONE Negative (Negative); LEUKO ESTERASE 1+ (Negative); NITRITE Negative (Negative); UROBILINOGEN 0.2 E.U./dl (0.0-1.0)
[2021-10-21 07:53] LABS: ALKALINE PHOSPHATASE 75 U/L (45-117); BUN 18 mg/dl (7-24); CHLORIDE 103 mmol/L (98-107); CHOLESTEROL 155 mg/dL (<200); CREATININE 0.69 mg/dL (0.55-1.02); LDL CHOLESTEROL 61 mg/dL (9-159); POTASSIUM 4.1 mmol/L (3.5-5.1); SGOT/AST 16 IU/L (3-35); SGPT/ALT 23 U/L (12-78); SODIUM 138 mmol/L (136-145); TOTAL PROTEIN 8.1 gm/dL (6.4-8.2); TRIGLYCERIDES 241 mg/dl (<150)
[2021-10-21 08:38] LABS: BACTERIA 1+
[2021-10-21 08:39] LABS: MUCOUS 1+
[2021-10-21 12:00] LABS: VITAMIN D, 25-HYDROXY 67.2 ng/mL (30-100)
== END | disposition home or self-care (01) ==
LOC: LAB 10-07 13:38 → US 07:30 → LAB 07:30
PROVIDERS: Internal Medicine; ATTEND Physician Assistant Medical
DX: E11.65 Type 2 diabetes mellitus with hyperglycemia (principal); E53.8 Deficiency of other specified B group vitamins; E55.9 Vitamin D deficiency, unspecified; E78.5 Hyperlipidemia, unspecified; R11.0 Nausea; R30.0 Dysuria

== ENCOUNTER → 2021-12-09 | Outpatient (CLI) | payer OTHER, MEDICAID | END | disposition home or self-care (01) | LOC: LAB 01:13 | PROVIDERS: ATTEND Physician Assistant Medical | DX: Z13.29 Encounter for screening for other suspected endocrine disorder (principal); I10 Essential (primary) hypertension; E78.5 Hyperlipidemia, unspecified ==

== ENCOUNTER → 2022-01-14 | Outpatient (CLI) | payer OTHER, MEDICAID | LOC: CARD 10-28 12:00 → MAMMO 11-05 01:38 → CARD 11-05 09:30 → MAMMO 02:24 | PROVIDERS: ATTEND Internal Medicine Cardiovascular Disease | DX: Z12.31 Encounter for screening mammogram for malignant neoplasm of breast (principal); R06.00 Dyspnea, unspecified ==

== ENCOUNTER → 2022-03-26 | Outpatient (CLI) | payer OTHER, MEDICAID ==
[2022-03-26 07:59] LABS: BILIRUBIN Negative (Negative); BLOOD Negative (Negative); CLARITY Clear (Clear); COLOR Yellow (Yellow); GLUCOSE Negative (Negative); KETONE Negative (Negative); LEUKO ESTERASE 1+ (Negative); NITRITE Negative (Negative); PH 6.5 (4.5-8.0); SPECIFIC GRAVITY 1.015 (1.001-1.030); UROBILINOGEN 0.2 E.U./dl (0.0-1.0)
[2022-03-26 08:22] LABS: RBC 0-2 rbc/hpf (0-2)
[2022-03-26 08:23] LABS: BACTERIA TRACE
[2022-03-26 10:00] LABS: ALKALINE PHOSPHATASE 67 U/L (45-117); BUN 15 mg/dl (7-24); CHLORIDE 107 mmol/L (98-107); CHOLESTEROL 150 mg/dL (<200); CREATININE 0.69 mg/dL (0.55-1.02); LDL CHOLESTEROL 65 mg/dL (9-159); POTASSIUM 4.8 mmol/L (3.5-5.1); SGOT/AST 12 IU/L (3-35); SGPT/ALT 26 U/L (12-78); SODIUM 141 mmol/L (136-145); TOTAL PROTEIN 7.8 gm/dL (6.4-8.2); TRIGLYCERIDES 146 mg/dl (<150)
[2022-03-26 10:25] LABS: VITAMIN D, 25-HYDROXY 56.5 ng/mL (30-100)
== END | disposition home or self-care (01) ==
LOC: LAB 00:02
PROVIDERS: ATTEND Internal Medicine
DX: E11.9 Type 2 diabetes mellitus without complications (principal); E78.5 Hyperlipidemia, unspecified; E55.9 Vitamin D deficiency, unspecified; E53.8 Deficiency of other specified B group vitamins; N30.00 Acute cystitis without hematuria

== ENCOUNTER → 2022-04-06 | Outpatient (CLI) | payer OTHER, MEDICAID ==
[2022-04-06 12:24] LABS: BILIRUBIN Negative (Negative); BLOOD Negative (Negative); CLARITY Clear (Clear); COLOR Yellow (Yellow); GLUCOSE Negative (Negative); KETONE Negative (Negative); LEUKO ESTERASE 1+ (Negative); NITRITE Negative (Negative); SPECIFIC GRAVITY <= 1.005 (1.001-1.030); UROBILINOGEN 0.2 E.U./dl (0.0-1.0)
[2022-04-06 13:39] LABS: BACTERIA TRACE
== END | disposition home or self-care (01) ==
LOC: LAB 11:31
PROVIDERS: ATTEND Nurse Practitioner Family
DX: R30.0 Dysuria (principal)

== ENCOUNTER → 2022-04-22 | Outpatient (CLI) | payer OTHER, MEDICAID | LOC: RAD 00:09 | PROVIDERS: ATTEND Urology | DX: R10.0 Acute abdomen (principal) ==

== ENCOUNTER 2022-06-16 09:48 | Emergency (ER) | payer OTHER, MEDICAID ==
[~2022-06-16] VITALS: Ht 152.4 cm; Wt 58.5 kg
[2022-06-16 10:55] VITALS: BP 173/92
[2022-06-16 12:03] LABS: BILIRUBIN Negative (Negative); BLOOD Negative (Negative); CLARITY Clear (Clear); COLOR Yellow (Yellow); GLUCOSE Negative (Negative); KETONE Negative (Negative); LEUKO ESTERASE 1+ (Negative); NITRITE Negative (Negative); PH 5.5 (4.5-8.0); SPECIFIC GRAVITY <= 1.005 (1.001-1.030); UROBILINOGEN 0.2 E.U./dl (0.0-1.0)
[2022-06-16 12:10] LABS: RBC 0-2 rbc/hpf (0-2)
== END 2022-06-16 14:22 | disposition home or self-care (01) ==
LOC: ED 09:48
PROVIDERS: Physician Assistant
DX: B34.9 Viral infection, unspecified (principal); N39.0 Urinary tract infection, site not specified; Z88.2 Allergy status to sulfonamides; Z88.5 Allergy status to narcotic agent; Z88.1 Allergy status to other antibiotic agents; Z88.8 Allergy status to other drugs, medicaments and biological substances; Z98.890 Other specified postprocedural states

== ENCOUNTER → 2022-07-29 | Outpatient (CLI) | payer OTHER, MEDICAID | END | disposition home or self-care (01) | LOC: RAD 15:08 | PROVIDERS: ATTEND Physician Assistant Medical | DX: M54.50 Low back pain, unspecified (principal); G89.29 Other chronic pain ==

== ENCOUNTER → 2022-08-27 | Outpatient (CLI) | payer OTHER, MEDICAID | END | disposition home or self-care (01) | LOC: MRI 01:00 | PROVIDERS: ATTEND Student in an Organized Health Care Education/Training Program | DX: M51.26 Other intervertebral disc displacement, lumbar region (principal); M54.16 Radiculopathy, lumbar region; M48.061 Spinal stenosis, lumbar region without neurogenic claudication ==

== ENCOUNTER → 2022-11-09 | Outpatient (CLI) | payer OTHER, MEDICAID ==
[2022-11-12 00:06] LABS: CODFISH, IGE <0.10 kU/L (Class 0); EGG WHITE, IGE <0.10 kU/L (Class 0); MILK (COW), IGE <0.10 kU/L (Class 0); PEANUT, IGE <0.10 kU/L (Class 0); SOYBEAN, IGE <0.10 kU/L (Class 0); WHEAT, IGE <0.10 kU/L (Class 0)
[2022-11-12 10:07] LABS: ALTERNARIA ALTERNATA, IGE <0.10 kU/L (Class 0); ASPERGILLUS FUMIGATU, IGE <0.10 kU/L (Class 0); BERMUDA GRASS, IGE <0.10 kU/L (Class 0); BIRCH, COMMON SILVER IGE <0.10 kU/L (Class 0); CLADOSPORIUM HERBARU, IGE <0.10 kU/L (Class 0); D FARINAE MITE <0.10 kU/L (Class 0); D PTERONYSSINUS <0.10 kU/L (Class 0); DOG DANDER, IGE <0.10 kU/L (Class 0); MAPLE LEAF SYCAMORE, IGE <0.10 kU/L (Class 0); MAPLE/BOX ELDER, IGE <0.10 kU/L (Class 0); MOUSE URINE IGE <0.10 kU/L (Class 0); PENICILLIUM CHRYSOGENUM, IGE <0.10 kU/L (Class 0); ROUGH PIGWEED, IGE <0.10 kU/L (Class 0); SHEEP SORREL (DOCK), IGE <0.10 kU/L (Class 0); TIMOTHY, IGE <0.10 kU/L (Class 0); WALNUT TREE, IGE <0.10 kU/L (Class 0); WHITE ASH, IGE <0.10 kU/L (Class 0); WHITE MULBERRY, IGE <0.10 kU/L (Class 0); WHITE OAK, IGE <0.10 kU/L (Class 0)
== END | disposition home or self-care (01) ==
LOC: LAB 12:10
PROVIDERS: ATTEND Specialist
DX: J30.9 Allergic rhinitis, unspecified (principal)

== ENCOUNTER → 2022-12-29 | Outpatient (CLI) | payer OTHER, MEDICAID ==
[2022-12-29 10:30] LABS: BILIRUBIN Negative (Negative); BLOOD Negative (Negative); CLARITY Clear (Clear); COLOR Yellow (Yellow); GLUCOSE Negative (Negative); KETONE Negative (Negative); LEUKO ESTERASE Negative (Negative); NITRITE Negative (Negative); PH 5.5 (4.5-8.0); UROBILINOGEN 0.2 E.U./dl (0.0-1.0)
[2022-12-29 10:55] LABS: BUN 11 mg/dl (9-23); CHLORIDE 100 mmol/L (98-107); POTASSIUM 4.6 mmol/L (3.4-5.1)
[2022-12-29 11:09] LABS: VITAMIN D, 25-HYDROXY 66.3 ng/mL (30-100)
== END | disposition home or self-care (01) ==
LOC: LAB 02:17
PROVIDERS: ATTEND Internal Medicine
DX: E11.9 Type 2 diabetes mellitus without complications (principal); E55.9 Vitamin D deficiency, unspecified; E53.8 Deficiency of other specified B group vitamins

== ENCOUNTER → 2023-05-11 | Outpatient (CLI) | payer OTHER, MEDICAID | END | disposition home or self-care (01) | LOC: RAD 14:05 | PROVIDERS: ATTEND Family Medicine | DX: R51.9 Headache, unspecified (principal) ==

== ENCOUNTER 2023-07-26 11:18 | Emergency (ER) | payer OTHER, MEDICAID ==
[~2023-07-26] VITALS: Wt 60.3 kg
[2023-07-26 11:49] VITALS: BP 178/59
[2023-07-26 13:17] LABS: BASO % 0.3 % (0.0-1.0); EOS % 0.2 % (1.0-4.0); HEMATOCRIT 38.7 % (37.0-47.0); LYMPH # 0.9 10*3/uL (1.3-4.4); LYMPH % 7.8 % (27.0-41.0); MEAN CELL VOLUME 94.4 fl (81.0-99.0); MEAN CORPUSCULAR HGB 29.3 pg (27.0-31.0); MEAN PLATELET VOLUME 10.7 fl (9.6-12.3); MONO # 0.7 10*3/uL (0.1-1.0); MONO % 5.8 % (3.0-9.0); NEUT # 9.9 10*3/uL (2.3-7.9); NEUT % 85.6 % (47.0-73.0); PLATELET COUNT AUTOMATED 271 10*3/uL (130-400); RED CELL DISTRI WIDTH 12.3 % (0-14.5); WHITE BLOOD COUNT 11.6 10*3/uL (4.8-10.8)
[2023-07-26 13:27] LABS: ACT PARTIAL THROMBO TIME 28.4 SECONDS (20.0-32.1)
[2023-07-26 13:38] LABS: ALKALINE PHOSPHATASE 76 U/L (46-116); BUN 12 mg/dl (9-23); CHLORIDE 100 mmol/L (98-107); SGPT/ALT 27 U/L (5-49); TOTAL PROTEIN 7.5 gm/dL (6.0-8.0)
[2023-07-26 14:38] LABS: BILIRUBIN Negative (Negative); BLOOD Negative (Negative); CLARITY Clear (Clear); COLOR Yellow (Yellow); GLUCOSE Negative (Negative); KETONE Negative (Negative); LEUKO ESTERASE Trace (Negative); NITRITE Negative (Negative); UROBILINOGEN 0.2 E.U./dl (0.0-1.0)
[2023-07-26 14:59] LABS: BACTERIA 1+
[2023-07-26 15:00] LABS: EPITHELIAL CELLS 0-2; RBC 0-2 rbc/hpf (0-2)
== END 2023-07-26 14:47 | disposition home or self-care (01) ==
LOC: ED 11:18
PROVIDERS: Nurse Practitioner Family
DX: R51.9 Headache, unspecified (principal); E87.1 Hypo-osmolality and hyponatremia; S46.919A Strain of unspecified muscle, fascia and tendon at shoulder and upper arm level, unspecified arm, initial encounter; S16.1XXA Strain of muscle, fascia and tendon at neck level, initial encounter; H92.03 Otalgia, bilateral; I10 Essential (primary) hypertension; M79.7 Fibromyalgia; E87.8 Other disorders of electrolyte and fluid balance, not elsewhere classified; E83.42 Hypomagnesemia; E78.00 Pure hypercholesterolemia, unspecified; Z98.890 Other specified postprocedural states; E11.65 Type 2 diabetes mellitus with hyperglycemia; K21.9 Gastro-esophageal reflux disease without esophagitis; M19.90 Unspecified osteoarthritis, unspecified site; Z79.899 Other long term (current) drug therapy; E11.40 Type 2 diabetes mellitus with diabetic neuropathy, unspecified; Z88.8 Allergy status to other drugs, medicaments and biological substances; Z88.1 Allergy status to other antibiotic agents; Z88.5 Allergy status to narcotic agent; Z88.2 Allergy status to sulfonamides; X58.XXXA Exposure to other specified factors, initial encounter; Y93.89 Activity, other specified; Y92.89 Other specified places as the place of occurrence of the external cause; Y99.8 Other external cause status

== ENCOUNTER → 2023-09-13 | Outpatient (CLI) | payer OTHER, MEDICAID ==
[2023-09-13 08:38] LABS: ALKALINE PHOSPHATASE 74 U/L (46-116); BUN 18 mg/dl (9-23); CHLORIDE 97 mmol/L (98-107); CHOLESTEROL 217 mg/dL (<200); LDL CHOLESTEROL 127 mg/dL (9-159); POTASSIUM 4.1 mmol/L (3.4-5.1); SGPT/ALT 30 U/L (5-49); TOTAL PROTEIN 7.3 gm/dL (6.0-8.0); TRIGLYCERIDES 174 mg/dl (<150)
[2023-09-13 08:44] LABS: VITAMIN D, 25-HYDROXY 71.1 ng/mL (30-100)
[2023-09-13 08:51] LABS: BILIRUBIN Negative (Negative); BLOOD Negative (Negative); CLARITY Clear (Clear); COLOR Yellow (Yellow); GLUCOSE Negative (Negative); KETONE Negative (Negative); LEUKO ESTERASE Negative (Negative); NITRITE Negative (Negative); PH 6.5 (4.5-8.0); UROBILINOGEN 0.2 E.U./dl (0.0-1.0)
[2023-09-13 09:11] LABS: BACTERIA 2+; RBC 0-2 rbc/hpf (0-2)
== END | disposition home or self-care (01) ==
LOC: LAB 02:05
PROVIDERS: ATTEND Internal Medicine
DX: E11.9 Type 2 diabetes mellitus without complications (principal); E55.9 Vitamin D deficiency, unspecified; E53.8 Deficiency of other specified B group vitamins; E78.5 Hyperlipidemia, unspecified

== ENCOUNTER → 2023-11-15 | Outpatient (CLI) | payer OTHER, MEDICAID | END | disposition home or self-care (01) | LOC: LAB 00:14 | PROVIDERS: ATTEND Family Medicine | DX: Z01.812 Encounter for preprocedural laboratory examination (principal) ==

== ENCOUNTER → 2023-11-17 | Outpatient (CLI) | payer OTHER, MEDICAID ==
[~2023-11-17] MED LIST changes: +IOHEXOL 300 MG/ML 100 ML VIAL IV ONE
== END | disposition home or self-care (01) ==
LOC: CT 01:34
PROVIDERS: ATTEND Surgery
DX: K76.0 Fatty (change of) liver, not elsewhere classified (principal); K57.30 Diverticulosis of large intestine without perforation or abscess without bleeding

== ENCOUNTER → 2023-12-06 | Day surgery (SDC) | payer OTHER, MEDICAID ==
[~2023-12-06] VITALS: Ht 152.4 cm; Wt 60.3 kg
[2023-12-06] VITALS (7 sets, daily range): BP systolic 113–136; BP diastolic 60–85
[~2023-12-06] MED LIST changes: -IOHEXOL 300 MG/ML 100 ML VIAL IV ONE; +Lidocaine Hydrochloride 2% 10 ML AMP IM ONE; +Midazolam Hydrochloride 2 MG/2 ML VIAL IV ONE; +PROPOFOL 200 MG/20 ML VIAL IV ONE; +SODIUM CHLORIDE 0.9% 1,000 ML IV ONE
== END | disposition home or self-care (01) ==
LOC: SDC 11-25 09:30
PROVIDERS: ATTEND Surgery
DX: K59.00 Constipation, unspecified (principal); R10.32 Left lower quadrant pain; R13.10 Dysphagia, unspecified; K57.30 Diverticulosis of large intestine without perforation or abscess without bleeding; K29.50 Unspecified chronic gastritis without bleeding; K31.7 Polyp of stomach and duodenum; K44.9 Diaphragmatic hernia without obstruction or gangrene; R06.00 Dyspnea, unspecified; F41.9 Anxiety disorder, unspecified; G47.30 Sleep apnea, unspecified; K57.92 Diverticulitis of intestine, part unspecified, without perforation or abscess without bleeding; E78.00 Pure hypercholesterolemia, unspecified; E11.9 Type 2 diabetes mellitus without complications; J45.909 Unspecified asthma, uncomplicated; I34.0 Nonrheumatic mitral (valve) insufficiency; M79.7 Fibromyalgia; Z79.899 Other long term (current) drug therapy; Z98.818 Other dental procedure status; Z98.890 Other specified postprocedural states; Z82.49 Family history of ischemic heart disease and other diseases of the circulatory system; Z80.0 Family history of malignant neoplasm of digestive organs

== ENCOUNTER → 2023-12-06 | Outpatient (CLI) | payer OTHER, MEDICAID ==
[~2023-12-06] MED LIST changes: -Lidocaine Hydrochloride 2% 10 ML AMP IM ONE; -Midazolam Hydrochloride 2 MG/2 ML VIAL IV ONE; -PROPOFOL 200 MG/20 ML VIAL IV ONE; -SODIUM CHLORIDE 0.9% 1,000 ML IV ONE
[2023-12-06 11:20] LABS: BILIRUBIN Negative (Negative); BLOOD Negative (Negative); CLARITY Clear (Clear); COLOR Yellow (Yellow); GLUCOSE Negative (Negative); KETONE Negative (Negative); LEUKO ESTERASE Negative (Negative); NITRITE Negative (Negative); PH 6.5 (4.5-8.0); SPECIFIC GRAVITY <= 1.005 (1.001-1.030); UROBILINOGEN 0.2 E.U./dl (0.0-1.0)
== END | disposition home or self-care (01) ==
LOC: LAB 10:46
PROVIDERS: ATTEND Family Medicine
DX: R30.0 Dysuria (principal)

== ENCOUNTER 2023-12-14 09:24 | Emergency (ER) | payer OTHER, MEDICAID ==
[~2023-12-14] VITALS: Ht 154.9 cm; Wt 56.7 kg
[2023-12-14 10:10] VITALS: BP 157/62
== END 2023-12-14 11:35 ==
LOC: ED 09:24
DX: R21 Rash and other nonspecific skin eruption (principal); I10 Essential (primary) hypertension; R11.0 Nausea; R51.9 Headache, unspecified; M79.7 Fibromyalgia; E78.1 Pure hyperglyceridemia; M19.90 Unspecified osteoarthritis, unspecified site; E11.42 Type 2 diabetes mellitus with diabetic polyneuropathy; Z88.8 Allergy status to other drugs, medicaments and biological substances; Z88.1 Allergy status to other antibiotic agents; Z79.2 Long term (current) use of antibiotics; Z88.5 Allergy status to narcotic agent; Z88.6 Allergy status to analgesic agent; Z79.899 Other long term (current) drug therapy; Z90.49 Acquired absence of other specified parts of digestive tract

== ENCOUNTER → 2024-06-07 | Outpatient (CLI) | payer OTHER, MEDICAID | END | disposition home or self-care (01) | LOC: LAB 13:36 | PROVIDERS: ATTEND Nurse Practitioner Family | DX: R00.2 Palpitations (principal); R07.89 Other chest pain ==

== ENCOUNTER → 2024-06-20 | Outpatient (CLI) | payer OTHER, MEDICAID | END | disposition home or self-care (01) | LOC: RAD 13:12 | PROVIDERS: ATTEND Family Medicine | DX: M17.11 Unilateral primary osteoarthritis, right knee (principal); M25.561 Pain in right knee ==

== ENCOUNTER → 2024-09-27 | Outpatient (CLI) | payer OTHER, MEDICAID ==
[2024-09-27 09:03] LABS: HEMATOCRIT 36.3 % (37.0-47.0); MEAN CELL VOLUME 92.4 fl (81.0-99.0); MEAN CORPUSCULAR HGB 29.5 pg (27.0-31.0); MEAN PLATELET VOLUME 10.3 fl (9.6-12.3); RED BLOOD COUNT 3.93 10*6/uL (4.10-5.10); RED CELL DISTRI WIDTH 12.9 % (0-14.5); WHITE BLOOD COUNT 6.6 10*3/uL (4.8-10.8)
[2024-09-27 09:28] LABS: BUN 14 mg/dl (9-23); CHLORIDE 96 mmol/L (98-107); POTASSIUM 4.2 mmol/L (3.4-5.1)
[2024-09-27 13:57] LABS: BILIRUBIN Negative (Negative); BLOOD Negative (Negative); CLARITY Clear (Clear); COLOR Yellow (Yellow); GLUCOSE Negative (Negative); KETONE Negative (Negative); NITRITE Negative (Negative); SPECIFIC GRAVITY 1.015 (1.001-1.030); UROBILINOGEN 0.2 E.U./dl (0.0-1.0)
[2024-09-27 13:58] LABS: BACTERIA 2+; LEUKO ESTERASE 2+ (Negative)
[2024-09-28 18:06] LABS: t-TRANSGLUTAMINASE (tTG) IGA <2 U/mL (0-3); t-TRANSGLUTAMINASE (tTG) IgG 4 U/mL (0-5)
== END | disposition home or self-care (01) ==
LOC: LAB 03:33
PROVIDERS: Family Medicine; ATTEND Family Medicine
DX: N39.0 Urinary tract infection, site not specified (principal); K58.9 Irritable bowel syndrome, unspecified; E87.1 Hypo-osmolality and hyponatremia; Z79.899 Other long term (current) drug therapy

== ENCOUNTER 2025-01-31 07:11 | Emergency (ER) | payer OTHER, MEDICAID ==
[~2025-01-31] VITALS: Ht 152.4 cm; Wt 60.8 kg
[2025-01-31 07:21] VITALS: BP 163/62
== END 2025-01-31 11:16 | disposition home or self-care (01) ==
LOC: ED 07:11
DX: M79.671 Pain in right foot (principal); M79.672 Pain in left foot; G62.9 Polyneuropathy, unspecified; Z90.49 Acquired absence of other specified parts of digestive tract; Z88.8 Allergy status to other drugs, medicaments and biological substances; Z88.1 Allergy status to other antibiotic agents; Z88.5 Allergy status to narcotic agent; Z88.2 Allergy status to sulfonamides; Z79.899 Other long term (current) drug therapy

== ENCOUNTER → 2025-02-12 | Outpatient (CLI) | payer OTHER, MEDICAID | END | disposition home or self-care (01) | LOC: MAMMO 00:39 | PROVIDERS: ATTEND Family Medicine | DX: Z12.31 Encounter for screening mammogram for malignant neoplasm of breast (principal); R92.313 Mammographic fatty tissue density, bilateral breasts; M81.0 Age-related osteoporosis without current pathological fracture ==

== ENCOUNTER → 2025-02-21 | Outpatient (CLI) | payer OTHER, MEDICAID | END | disposition home or self-care (01) | LOC: CARD 02:39 | PROVIDERS: ATTEND Nurse Practitioner Family | DX: R00.0 Tachycardia, unspecified (principal); R06.02 Shortness of breath; R00.2 Palpitations ==

== ENCOUNTER 2025-05-17 10:17 | Emergency (ER) | payer OTHER, MEDICAID ==
[~2025-05-17] VITALS: Ht 152.4 cm; Wt 60.3 kg
[2025-05-17] MEDS ORDERED: IOHEXOL 300 MG/ML 100 ML VIAL IV ONE (11:15)
[2025-05-17 11:28] LABS: BASO # 0.0 10*3/uL (0.0-0.1); BASO % 0.4 % (0.0-1.0); EOS # 0.0 10*3/uL (0.0-0.4); EOS % 0.5 % (1.0-4.0); MEAN CELL VOLUME 94.1 fl (81.0-99.0); MEAN CORPUSCULAR HGB 29.6 pg (27.0-31.0); MEAN PLATELET VOLUME 10.1 fl (9.6-12.3); MONO # 0.6 10*3/uL (0.1-1.0); MONO % 6.5 % (3.0-9.0); NEUT # 6.7 10*3/uL (2.3-7.9); NEUT % 79.4 % (47.0-73.0); NUCLEATED RED BLOOD CELL 0.0 % (0.0-0.0); NUCLEATED RED BLOOD CELL 0.0 10*3/uL (0.0-0.0); PLATELET COUNT AUTOMATED 243 10*3/uL (130-400); RED CELL DISTRI WIDTH 12.6 % (0-14.5)
[2025-05-17 11:48] LABS: BUN 15 mg/dl (9-23)
[2025-05-17 12:14] LABS: BILIRUBIN Negative (Negative); BLOOD Negative (Negative); CLARITY Clear (Clear); COLOR Yellow (Yellow); KETONE Negative (Negative); LEUKO ESTERASE Negative (Negative); NITRITE Negative (Negative); PH 6.5 (4.5-8.0); SPECIFIC GRAVITY 1.010 (1.001-1.030); UROBILINOGEN 0.2 E.U./dl (0.0-1.0)
[2025-05-17 12:57] LABS: BACTERIA TRACE; RBC 0-2 rbc/hpf (0-2); WBC 0-2 wbc/hpf (0-5)
[2025-05-17 14:16] VITALS: BP 146/69
== END 2025-05-17 14:54 | disposition home or self-care (01) ==
LOC: ED 10:17
PROVIDERS: Student in an Organized Health Care Education/Training Program
DX: R10.32 Left lower quadrant pain (principal); R10.12 Left upper quadrant pain; K92.1 Melena; K21.9 Gastro-esophageal reflux disease without esophagitis; I10 Essential (primary) hypertension; M79.7 Fibromyalgia; M19.90 Unspecified osteoarthritis, unspecified site; E11.40 Type 2 diabetes mellitus with diabetic neuropathy, unspecified; Z90.49 Acquired absence of other specified parts of digestive tract; Z98.890 Other specified postprocedural states; Z88.1 Allergy status to other antibiotic agents; Z88.5 Allergy status to narcotic agent; Z88.6 Allergy status to analgesic agent; Z88.8 Allergy status to other drugs, medicaments and biological substances

== ENCOUNTER → 2025-06-05 | Outpatient (CLI) | payer OTHER, MEDICAID | END | disposition home or self-care (01) | LOC: US 11:00 | PROVIDERS: ATTEND Podiatrist | DX: M79.605 Pain in left leg (principal) ==